=== PATIENT | female | born 1945 | race African-American/Black ===

== ENCOUNTER 2020-01-29 10:15 | Inpatient (IN) | payer OTHER ==
[~2020-01-29] VITALS: Ht 170.2 cm; Wt 119.8 kg
--- NOTE | ~2020-01-29 | HC ---
[facility] [place] [address] CONSULTATION Name: DESMOND BARROS MILLI Room #: 216-P ADM IN M.R.#: [id number] Admission: 01/29/20 Attend Phys: Gerard Knapp MD Discharge: Date of : 49 Report #: [id number] THIS REPORT FOR: cc: Leora Flores,Leora Cesar,Jeff Peacock MD ~ CC: Leora Knapp DATE OF SERVICE: 01/29/2020 REASON FOR CONSULTATION: End-stage renal disease requiring hemodialysis. HISTORY OF PRESENT ILLNESS: This is a 74-year-old female who presented this morning to the Emergency Room having been sent with mental status changes from the [facility]. At this point, she is not able to give any history. My history is obtained from the Emergency Room records as well as the records sent over from [facility]. She has been battling some wounds on her thigh and her coccyx. This is the medial right thigh and her coccyx. She has had some leukocytosis. She has not demonstrated actual fever at [facility]. She was brought in with mental status changes, leukocytosis and these wounds. From a dialysis standpoint, she has been on chronic hemodialysis with an undetermined duration. I can say it has been at least since 10/2019, although I am unaware if it has been a longer. She normally dialyzes on a Saturday, Saturday, Saturday basis. She dialyzes using a left upper arm fistula. I have no dialysis records from [facility]. She last dialyzed on 01/27/2020, which is 2 days ago. PAST MEDICAL HISTORY: Longstanding diabetes and hypertension. She has had these wounds on her thigh and her coccyx for an undetermined period of time. She has had prior deep venous thrombosis and is chronically on anticoagulation. It looks like some of her prior care has been through the [facility] here in [place]. Again, she is not able to provide me with any additional history at this time. Medication list is from the Emergency Room as I cannot find an active list brought over from [facility]. They include warfarin, but according to the notes, she has been off of warfarin for the past 9 days; metformin, which I am not sure I am believing as she is on chronic dialysis patient. It is also listed as vitamin D, Renvela 1600 mg t.i.d. with meals as a phosphate binder, pravastatin 20 mg daily, metoprolol 25 mg daily, Neurontin 400 mg t.i.d., furosemide 40 mg b.i.d., amiodarone 200 mg daily. ALLERGIES: LISTED TO CODEINE AND LISINOPRIL WELL PENICILLIN. [facility] [address] [place] [address] CONSULTATION Name: DESMOND BARROS Room #: 216-P ADM IN M.R.#: [id number] Admission: 01/29/20 Attend Phys: Gerard Knapp MD Discharge: Date of : 49 Report #: [id number] Other history available. PHYSICAL EXAMINATION: GENERAL: Debilitated, chronically ill-appearing female. VITAL SIGNS: Blood pressure 138/87, heart rate 71, temperature 96.0, oxygen saturation 93%. HEENT: Shows pupils are equal and reactive. Sclerae nonicteric. Oral mucosa is dry. NECK: Veins are nondistended. CHEST: Shallow. CARDIOVASCULAR: Heart has a regular rate and rhythm. ABDOMEN: Obese, has active bowel sounds. Numerous abdominal scars are noted. EXTREMITIES: She has a left upper arm fistula in place, which looks to be potentially a brachiocephalic fistula. Her right thigh is bandaged, but has an extensive wound on the medial aspect. She has chronic brawny appearing lower extremity edema 1-2+ in the lower extremities. I did not have assistance to roll over and looked at her coccyx ulcer. LABORATORY DATA: Sodium 135, potassium 4.8, chloride 99, bicarbonate 22, BUN 36, creatinine 4.0, glucose 141, calcium 8.9, magnesium 2.2, AST 37, ALT 5, alkaline phosphatase 118, total protein 6.8, albumin 2.1. White count 19.0, hemoglobin 9.9, hematocrit 33.1, platelets 322,000. Differential on the white count, 86 neutrophils, 7 lymphs, 6 monos. INR 7.2. ASSESSMENT: 1. End-stage renal disease. Due to the timing of the consult this evening and the patient's labs, we will plan for dialysis tomorrow. I have talked to surgery and they are planning to take her to the OR in the morning, so we will dialyze in the afternoon. Orders have been placed. I have talked to the dialysis nurse. 2. Thigh and sacral wounds. Again, I talked to surgery. They are going to do debridement on these and see the extent. I asked that they get some biopsy of the periphery because I am curious whether this is calciphylaxis. No diagnosis is noted on her chart nor any records indicate that, but it is very suspicious diagnosis in a long-term dialysis patient on warfarin. Certainly, if that is the case, we will need to use thiosulfate as a chelator to try to help those improve. In addition, she does have a leukocytosis, so cultures have been drawn and she will be started on broad-spectrum antibiotics. 3. Longstanding hypertension, currently adequate. 4. Longstanding type 2 diabetes. 5. Prior deep venous thrombosis. Again, on chronic warfarin. This significantly is associated with risk of calciphylaxis injury as noted above. PLAN: 1. Dialysis tomorrow. 2. Follow labs. [facility] [address] [place] [address] CONSULTATION Name: DESMOND BARROS Room #: 216-P ADM IN M.R.#: [id number] Admission: 01/29/20 Attend Phys: Gerard Knapp MD Discharge: Date of : 49 Report #: [id number] 3. Await the biopsy results from her debridement to see if there is evidence of calciphylaxis. 4. We will follow along the care of this very ill patient. By: [id number] Jeff Ayala MD /nt
--- NOTE | ~2020-01-29 | HC ---
[facility] [place] [address] CONSULTATION Name: DESMOND BARROS MILLI Room #: 216-P ADM IN M.R.#: [id number] Admission: 01/29/20 Attend Phys: Gerard Knapp MD Discharge: Date of : 49 Report #: [id number] THIS REPORT FOR: cc: Leora Flores,Leora Valencia,Bennie Pittman MD ~ CC: Leora Knapp DATE OF SERVICE: 02/02/2020 REASON FOR CONSULTATION: Evaluate sacral osteomyelitis and right thigh wound infection. HISTORY OF PRESENT ILLNESS: The patient is a 74-year-old alf resident with diabetes, end-stage renal disease, on hemodialysis, who has had progressive confusional state over the last several days. She has been declining in her overall health for over a year. She has ongoing sacral pressure wounds. She has venous insufficiency and known peripheral vascular disease. She has had no fever, chills or sweats. Hemodynamically, has been reasonably stable. Has been on oxygen per nasal cannula at low flow rate. There has been no cough or sputum production. Yesterday underwent surgical debridement of her sacrum down to bone. Also, right thigh down to the fascia. As of yet have not seen path reports to confirm or exclude calciphylaxis. She is bit more alert now and able to converse, although remains confused. REVIEW OF SYSTEMS: A 10-point review was negative other than what has been described above. ALLERGIES: CODEINE, LISINOPRIL, PENICILLIN, PHOSPHATE. MEDICATIONS: Amiodarone, folic acid, Lasix, gabapentin, gentamicin ophthalmic drops, metoprolol, pravastatin, Renvela, thiamine, vitamin D, Tylenol, Coumadin, metformin, Santyl. PAST MEDICAL HISTORY: Dialysis, end-stage renal disease, osteoarthritis, hypertension, chronic pain, DVT, peripheral vascular disease, diabetes, suspected dementia, constipation. FAMILY HISTORY: No tuberculosis. SOCIAL HISTORY: Nonsmoker, no significant alcohol intake. Resides in a alf. PHYSICAL EXAMINATION: VITAL SIGNS: She was afebrile and hemodynamically stable. She was on dialysis. [facility] [address] [place] [address] CONSULTATION Name: DESMOND BARROS Room #: 216-P [facility] IN .R.#: [id number] Admission: 01/29/20 Attend Phys: Gerard Knapp MD Discharge: Date of : 47 Report #: [id number] GENERAL: She was lethargic, but would arouse and follow commands. Unable to give any further details of her history. Denied any pain. SKIN: With wounds to her sacrum and her medial thigh, which were packed. Moderate amount of drainage identified. 2+ peripheral edema. No other skin lesions noted. No palpable adenopathy. ABDOMEN: Obese. EXTREMITIES: Left upper extremity AV fistula was functional. EYES: Without scleral icterus. MOUTH: Without mucositis. NECK: Supple. LUNGS: Clear. HEART: Regular, without murmur, gallop or rub. ABDOMEN: Soft, nontender with no hepatosplenomegaly or mass. GENITAL AND RECTAL: Not performed. NEUROLOGIC: Cranial nerves intact and able to move her left side greater than her right. LABORATORY STUDIES: Reviewed. Microbiology reviewed. Chest x-ray reviewed. IMPRESSION AND PLAN: A 74-year-old with underlying diabetes, end-stage renal disease, on hemodialysis program with failure to thrive over the last year or so with progressive confusion, immobility and development of sacral pressure wound along with likely osteomyelitis given the operative findings. There is polymicrobial growth thus far. 1. 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 2. End-stage renal disease. 3. Diabetes. 4. Hypertension. 5. Likely aspiration left lung infiltrate versus atelectasis, which has improved. RECOMMENDATIONS: We will continue antibiotic coverage, pending further culture results. Await further ID workup until daughter decides on appropriate plan of care for her mother. By: [id number] [id number] Bennie Foreman MD /nt
[2020-01-29 10:16] VITALS: BP 114/81
[2020-01-29 10:54] LABS: ABSOLUTE NEUTROPHILS 16.6 thou/uL (1.4-8.2); BASOPHILS 0.5 % (0.0-2.0); EOSINOPHILS 0.7 % (0.0-3.0); HEMATOCRIT 33.1 % (37.0-47.0); HEMOGLOBIN 9.9 gm/dL (12.0-15.0); LYMPHOCYTES 6.7 % (24.0-44.0); MCH 24.6 pg (26.0-34.0); MONOCYTES 6.2 % (1.0-8.0); PLATELET COUNT 322 thou/uL (150-400); POLYS 85.9 % (36.0-66.0); RBC 4.03 mil/uL (4.20-5.00); RDW 19.6 % (10.5-14.5); WBC 19.4 thou/uL (4.0-11.0)
[2020-01-29 11:12] LABS: CALCIUM 8.9 mg/dL (8.5-10.1); POTASSIUM 4.8 mmol/L (3.5-5.1)
[2020-01-29 11:22] LABS: ALBUMIN 2.1 g/dL (3.4-5.0); MAGNESIUM 2.2 mg/dL (1.8-2.4); TOTAL PROTEIN 6.8 g/dL (6.4-8.2); TROPONIN-I 0.21 ng/mL (<0.06)
[2020-01-29] MEDS ORDERED: AMIODARONE HCL400 MG PO (11:22)
[2020-01-29] MEDS ORDERED: BISACODYL10 MG RECTAL (11:24)
[2020-01-29] MEDS ORDERED: ESCITALOPRAM PO (11:25)
[2020-01-29] MEDS ORDERED: FUROSEMIDE 40 M40 MG PO (11:32)
[2020-01-29] MEDS ORDERED: FOLIC ACID1 MG PO (11:32)
[2020-01-29] MEDS ORDERED: NEURONTIN 400M400 M2 PO (11:35)
[2020-01-29] MEDS ORDERED: GENTAMICIN OPH3.5 GM OPHTHALMIC (11:36)
[2020-01-29] MEDS ORDERED: LORCET 5-325 M1 EACH PO (11:37)
[2020-01-29] MEDS ORDERED: TOPROL XL25 MG PO (11:37)
[2020-01-29] MEDS ORDERED: RENVELA800 MG PO (11:38)
[2020-01-29] MEDS ORDERED: PRAVACHOL 20 MG20 M1 PO (11:38)
[2020-01-29] MEDS ORDERED: VITAMIN B-1100 M2 PO (11:41)
[2020-01-29] MEDS ORDERED: VITAMIN D35000 UNI2 PO (11:41)
[2020-01-29] MEDS ORDERED: APAP650 PO (11:42)
[2020-01-29] MEDS ORDERED: COUMADIN 4 MG TA4 M1 PO (11:43)
[2020-01-29] MEDS ORDERED: SANTYL OINTMENT30 G1 TOP (11:44)
[2020-01-29] MEDS ORDERED: METFORMIN HCL500 M3 PO (11:44)
[2020-01-29 12:06] VITALS: BP 92/59
--- NOTE | 2020-01-29 12:16 | NUR ---
LAZARUS (SON) [phone] (OFFICE) [phone] (CELL)
[2020-01-29 13:00] VITALS: BP 119/28
[2020-01-29 13:24] VITALS: BP 138/87
[2020-01-29 16:09] LABS: APTT 64.4 Seconds (24.5-32.8); PROTIME 74.3 Seconds (9.3-11.4)
[2020-01-29 16:13] LABS: INR 7.2
--- NOTE | 2020-01-29 16:23 | EKG ---
[facility] [place] [address] ELECTROCARDIOGRAM REPORT Name: JORGE SHAVONNEDESMOND MILLI Room #: 216-P ADM IN M.R.#: [id number] Admission: 01/29/20 Attend Phys: Gerard Knapp MD Discharge: Date of : 49 Report #: [id number] THIS REPORT FOR: cc: Leora Flores,Leora Delaney,Gordy Holman MD ~ THIS REPORT FOR: //name// [facility] ED Test Date: 2020-01-29 Test Time: 10:24:00 Pat Name: DESMOND MARVIN Department: Room: [facility] Gender: F Hog Grader: TATYANA : 1945 Requested By: Bennie Crawford Order Number: [id number] MD: Gordy Zheng Measurements Intervals [place] Rate: 91 P: NV: QRS: 154 QRSD: 183 T: -78 QT: 416 QTc: 512 Interpretive Statements Atrial fibrillation Right bundle branch block Borderline ST depression, lateral leads No previous ECG available for comparison Electronically Signed On 01-29-2020 16:22:28 CDT by Gordy Zheng [email or web address] <ELECTRONICALLY SIGNED> By: Gordy Zheng MD 01/29/20 1622 1024 1024 Gordy Zheng MD /ISIDRO
--- NOTE | 2020-01-29 19:11 | NUR ---
Assumed pt care at 1600 from [facility].Per report,pt was admitted from emergency room around 1300. Admission hx,assessment and care plan completed. Most of the information wer obtained from pt record from alf. Dr Knapp and Matthew notified about pt admission to floor.Pt will be having surgery in am.Dr Ayala rounded on pt and additional order noted.Report will be given to iris rn.
[2020-01-29 19:57] VITALS: BP 126/46
[2020-01-30] VITALS (8 sets, daily range): BP systolic 110–154; BP diastolic 42–60
[2020-01-30 05:14] LABS: PROTIME 73.6 Seconds (9.3-11.4)
--- NOTE | 2020-01-30 05:19 | NUR ---
ASSUMED PT CARE AT 1900. PT IS ALERT, AND CONFUSED. PT IS VERY LETHARGIC AND DROWSY. FALL PRECAUTION IN PLACE. ASSESSMENT COMPLETED AND DOCUMENTED. WOUNDS ASSESSED AND CLEANED. SCHEDULED MEDS ADMINISTERED. PT IS NPO AFTER MIDNIGHT FOR A SCHEDULED DEBRIDMENT. PAIN MEDS ADMINISTERED. Q2H TURNS. DENIES ANY FURTHER NEEDS AT THIS TIME.
[2020-01-30 05:30] LABS: HEMATOCRIT 32.6 % (37.0-47.0); HEMOGLOBIN 9.5 gm/dL (12.0-15.0); MCH 24.3 pg (26.0-34.0); MCHC 29.2 g/dL (28.0-37.0); MCV 83.1 fL (80.0-100.0); RBC 3.93 mil/uL (4.20-5.00); RDW 19.3 % (10.5-14.5)
[2020-01-30 05:39] LABS: ALBUMIN 1.9 g/dL (3.4-5.0); CALCIUM 9.1 mg/dL (8.5-10.1); CREATININE 4.2 mg/dL (0.6-1.0); PHOSPHORUS 3.2 mg/dL (2.5-4.9); POTASSIUM 3.7 mmol/L (3.5-5.1)
[2020-01-30 05:42] LABS: INR 7.2
--- NOTE | 2020-01-30 13:42 | NUR ---
Assumed pt care at 7am.Pt in bed sleeping on and off with o2 on at 3lnc. Assessment completed.vss but lowdbp noted.Dr Knapp aware.Inr today was 7.2 2units of ffp given as ordered.Dr Sylvester notified and he said that he has alerady cancelled surgery for today and that pt should resumed diet and meds as previously ordered.Rn fed pt at breakfast and 75% of meal intake noted. Pt family brought in advance directive and was placed in chart.Pt in room at present having hemodialysis.Repositioned pt q2h in bed for comfort.Will continue to monitor.
[2020-01-31 03:06] LABS: HEPATITIS B SURFACE AG Negative (Negative)
[2020-01-31 04:45] VITALS: BP 104/45
--- NOTE | 2020-01-31 05:17 | NUR ---
PT SLEEPING OR SOMETIMES AWAKE AND LETHARGIC WITH C/O PAIN THIS AM, PRN PAIN MEDS GIVEN NEEDED, PT REPOSITIONED FEET AND UPPER EXT ELEVATED, LEFT ARM FISTULA COVERED WITH GAUZE DRESSING CDI, PT ALERT TO NAME AND SOMETIMES PLACE, REMAINS CONFUSED AND AGGITATED WITH CARE, NEEDS LOTS OF ENCOURAGEMENT TO FOLLOW PPOC, REFUSED DRESSING CHANGE AT START OF SHIFT VERY AGGITATED, WAS ABLE TO GET HER TO LET US TURN HER AND LET RADIOLOGY COMPLETE XRAY, WILL CON'T TO MONITOR PER PPOC.
[2020-01-31 07:45] VITALS: BP 104/74
[2020-01-31 08:20] LABS: ABSOLUTE NEUTROPHILS 13.2 thou/uL (1.4-8.2); BASOPHILS 0.8 % (0.0-2.0); EOSINOPHILS 0.2 % (0.0-3.0); HEMATOCRIT 31.6 % (37.0-47.0); HEMOGLOBIN 9.5 gm/dL (12.0-15.0); LYMPHOCYTES 5.3 % (24.0-44.0); MCH 24.5 pg (26.0-34.0); MCV 81.6 fL (80.0-100.0); MONOCYTES 7.3 % (1.0-8.0); PLATELET COUNT 231 thou/uL (150-400); POLYS 86.4 % (36.0-66.0); RBC 3.87 mil/uL (4.20-5.00); RDW 19.2 % (10.5-14.5); WBC 15.3 thou/uL (4.0-11.0)
[2020-01-31 08:27] LABS: CALCIUM 8.9 mg/dL (8.5-10.1); CREATININE 3.6 mg/dL (0.6-1.0); MAGNESIUM 1.9 mg/dL (1.8-2.4); POTASSIUM 3.4 mmol/L (3.5-5.1)
[2020-01-31 08:53] LABS: PROTIME 18.5 Seconds (9.3-11.4)
[2020-01-31 08:55] LABS: INR 1.8
--- NOTE | 2020-01-31 08:59 | NUR ---
PT REQUESTED TO SPEAK TO SON OMAR. NURSE CALLED SON AT HOME AND PT WAS ABLE TO SPEAK TO SON OMAR AND DAUGHTER IN LAW [employer] ON PHONE. NURSE GAVE FAMILY HER DIRECT WORK NUMBER IN CASE THEY HAVE ANY QUESTIONS TODAY OR WANT TO REACH THE PATIENT TO TALK TODAY. PT DOES NOT ICE PULLER THE PHONE IN HER ROOM WHEN IT RINGS.
[2020-01-31 11:30] VITALS: BP 110/68
--- NOTE | 2020-01-31 12:44 | NUR ---
WOUND CARE TO SACRAL WOUND AND THIGH WOUND DONE. PT GIVEN IV PAIN MEDS. PT WAS UPSET THAT WE GAVE HER A BATH AND CLEANED AND CHANGED HER WOUND DRESSINGS. EDUCATION GIVEN ON IMPORTANCE OF KEEPING PT TURNED AND OFF WOUND AND IMPORTANCE OF LETTING STAFF CLEAN WOUND AND CHANGE WOUND DRESSING. PT DID NOT APPEAR TO AGREE. PT BEING TURNED Q2 HOURS WITH USE OF WEDGES TO HELP REPOSITION PT. WILL CONTINUE TO MONITOR DRESSINGS AND KEEP PT TURNED AND OFF OF WOUNDS.
[2020-01-31 16:20] VITALS: BP 114/48
--- NOTE | 2020-01-31 17:55 | NUR ---
PT HAS HAD VERY POOR DIETARY INTAKE TODAY. PT NEEDS A LOT OF ENCOURAGEMENT TO EAT AND DRINK. EVEN WITH ENCOURAGEMENT, PT EATS VERY SMALL AMOUNT AND DRINKS SMALL AMOUNT. PT WOULD BENEFIT FROM SPEECH SWALLOW EVAL. RN NOTICED PT INCREASE IN COUGHING WHILE EATING AND DRINKING. PT IS NPO AFTER MIDNIGHT FOR POSSIBLE DEBRIDEMENT OF WOUNDS TOMORROW.
[2020-01-31 19:30] LABS: HCO3 24.2 mmol/L (22.0-26.0); PCO2 42.1 mmHg (35.0-45.0); PO2 79.5 mmHg (80.0-100.0); pH 7.377 (7.360-7.450); sO2 95.5 % (92.0-98.0)
--- NOTE | 2020-01-31 20:04 | NUR ---
AT 1904 PT'S TIPPLE GREASER ALARMED INCREASED HR OF 122. PT HAD PREVIOUSLY BEEN RUNNING HR OF 80'S. RN CHECKED ON PT AND LOC APPEARED MORE LETHARGIC THAN PREVIOUSLY. PT ABLE TO OPEN EYES SPONTANEOUSLY BUT WAS SLOW TO ANSWER ORIENTATION QUESTIONS. RAPID RESPONSE TEAM CALLED AND VITAL SIGNS AND BLOOD SUGAR OBTAINED. SEE CHARTING. DR CARCAMO STAT PAGED AND ORDER FOR STAT TROPONIN AND STAT EKG OBTAINED. HR WENT HIGH 180'S . PT NEVER LOST CONSCIOUSNESS. PT PLACED IN TRENDELEMBURG DUE TO LOW B/P. ONCE IN TRENDELEMBURG PT'S HR BEGAN TO SLOW DOWN AND RETURNED TO A RATE IN THE 80'S. PT'S BLOOD PRESSURE RAISED WELL. ORDER FOR CHEST XRAY OBTAINED. SENIOR FINANCE MANAGER AND RT RESPONDED TO RAPID RESPONSE CALL WELL SEVERAL RN'S ON UNIT. PT IS CURRENTLY CLOSELY BEING MONITORED VIA TELEMETRY AND REPORT WAS GIVEN TO NIGHT EMELY MADRIGAL. NURSE PRACTIONER WELL DR CARCAMO ARE BOTH AWARE AND STATE THEY MAY ADD MORE ORDERS VIA CPOE. PT APPEARS TO CURRENTLY BE BACK TO BASELINE. MONITORED VIA TELEMETRY SEE APPEARS TO
[2020-01-31 21:17] LABS: CALCIUM 8.7 mg/dL (8.5-10.1); MAGNESIUM 1.9 mg/dL (1.8-2.4); POTASSIUM 3.5 mmol/L (3.5-5.1)
[2020-02-01] VITALS (12 sets, daily range): BP systolic 18–123; BP diastolic 38–58
[2020-02-01 04:56] LABS: BASOPHILS 0.3 % (0.0-2.0); EOSINOPHILS 0.3 % (0.0-3.0); HEMATOCRIT 31.9 % (37.0-47.0); HEMOGLOBIN 9.3 gm/dL (12.0-15.0); LYMPHOCYTES 4.4 % (24.0-44.0); MCH 24.3 pg (26.0-34.0); MCHC 29.3 g/dL (28.0-37.0); MONOCYTES 7.4 % (1.0-8.0); PLATELET COUNT 229 thou/uL (150-400); POLYS 87.6 % (36.0-66.0); RBC 3.84 mil/uL (4.20-5.00); RDW 19.4 % (10.5-14.5); WBC 14.8 thou/uL (4.0-11.0)
--- NOTE | 2020-02-01 04:57 | NUR ---
ASSUMED PT CARE AROUND 1899, CHANGE OF SHIFT REPORT OBTAINED FROM EMELY WEBB PT IS A&O TO SELF, CONFUSED, APPEARS LETHARGIC AND DROWSY, PT STATUS CHANGED CHARTED BY THE PREVIOUS NURSE, METOPROLOL GIVEN ORDERED, PT STAYED ON HER BASELINE THUS FAR, WOUND CARE COMPLETED ORDRED, DENIES PAIN, SR/BBB ON THE MONITOR, REMAINED NPO AFTER MIDNIGHT FOR POSSIBLE DEBRIDEMENT IN THE AM, VSS, B/S STABLE, [id number], LAYING IN BED AT THIS TIME, WILL CONTINUE TO MONITOR
[2020-02-01 05:10] LABS: CALCIUM 8.6 mg/dL (8.5-10.1); CREATININE 3.8 mg/dL (0.6-1.0)
[2020-02-01 05:14] LABS: POTASSIUM 4.2 mmol/L (3.5-5.1)
[2020-02-01 05:38] LABS: INR 1.7; PROTIME 16.7 Seconds (9.3-11.4)
--- NOTE | 2020-02-01 08:03 | EKG ---
[facility] [place] [address] ELECTROCARDIOGRAM REPORT Name: DESMOND BARROS Room #: 216-P ADM IN M.R.#: [id number] Admission: 01/29/20 Attend Phys: Gerard Knapp MD Discharge: Date of : 49 Report #: [id number] THIS REPORT FOR: cc: Leora Flores,Leora Gillis,Luis Carlos Cortes MD [facility] THIS REPORT FOR: //name// [facility] Test Date: 2020-01-31 Test Time: 19:17:51 Pat Name: DESMOND MARVIN Department: Room: 216 Gender: F Winder Contort Operator: kassi : 1945 Requested By: Koki Em Order Number: [id number] MD: Luis Carlos Roque Measurements Intervals [place] Rate: 169 P: 0 [place]: 84 QRS: 250 QRSD: 156 T: 138 QT: 334 QTc: 561 Interpretive Statements Ventricular tachycardia Compared to ECG 01/29/2020 10:24:00 Atrial fibrillation no longer present Nurse notified Electronically Signed On 02-01-2020 8:02:25 CDT by Luis Carlos Roque [email or web address] <ELECTRONICALLY SIGNED> By: Luis Carlos Roque MD, [facility] 02/01/20 0802 16 16 Luis Carlos Roque MD, [facility] /EPI
--- NOTE | 2020-02-01 08:05 | EKG ---
[facility] [place] [address] ELECTROCARDIOGRAM REPORT Name: DESMOND BARROS Room #: 216-P ADM IN M.R.#: [id number] Admission: 01/29/20 Attend Phys: Gerard Knapp MD Discharge: Date of : 47 Report #: [id number] THIS REPORT FOR: cc: Leora Flores,Leora Glilis,Lius Carlos Cortes MD [facility] THIS REPORT FOR: //name// [facility] Test Date: 2020-01-31 Test Time: 19:23:19 Pat Name: DESMOND MARVIN Department: Room: 216 Gender: F Driver Sales: [facility] : 1945 Requested By: Gerard Knapp Order Number: [id number] MD: Luis Carlos Roque Measurements Intervals [place] Rate: 83 P: 49 CT: 185 QRS: 174 QRSD: 196 T: -81 QT: 409 QTc: 481 Interpretive Statements Sinus rhythm Right bundle branch block ST and T wave abnormality Baseline wander in lead(s) II,III,aVR,aVF Compared to ECG 01/29/2020 10:24:00 Sinus rhythm has replaced ventricular tachycardia Electronically Signed On 02-01-2020 8:03:46 CDT by Luis Carlos Roque [email or web address] <ELECTRONICALLY SIGNED> By: Luis Carlos Roque MD, FACC 02/01/20802 22 22 Luis Carlos Roque MD, [facility] /EPI
--- NOTE | 2020-02-01 11:51 | NUR ---
Patient admits from [facility]. She dializes at [facility]. Patient to have I/D today. Sp with admissions at [facility] and son. Plan to return once stable.
--- NOTE | 2020-02-01 12:11 | NUR ---
ASSUMED CARE AT SHIFT CHANGE, PATIENT ALERT TO SELF AND PLACE, FORGETFUL. VSS THIS MORNING AND SR WITH BBB. RECIEVED PATIENT BACK FROM PACU S/P I&D, SEE SURGERY NOTES, DROWESY AND BP LOW 89/45, ANGELI CHU DRESSAGE JUDGE, INFORMED ANESTHESIA PHYSICIAN. MEDICATED, AND REPOSTIONED NEEDED FOR COMFORT. AND WILL CONTINUE TO MONITOR PATIENT.
--- NOTE | 2020-02-01 15:51 | HC ---
[facility] [place] [address] CONSULTATION Name: DESMOND BARROS MILLI Room #: 216-P ADM IN M.R.#: [id number] Admission: 01/29/20 Attend Phys: Gerard Knapp MD Discharge: Date of : 49 Report #: [id number] THIS REPORT FOR: cc: Leora Flores,Jeff Higgins MD ~ CC: Leora Knapp DATE OF SERVICE: 01/29/2020 CHIEF COMPLAINT: Right thigh and sacral pressure ulcerations. HISTORY OF PRESENT ILLNESS: This is a 74-year-old female patient from a local nursing care facility with increasing alteration in her mental status over the past couple of days. She is noted to have foul smelling drainage from the sacral and right thigh wound and has been admitted to the hospital. I have been asked to see her in consultation for wound care. The patient is not cooperative with the exam. She is disoriented to person and time. The patient is not able to provide any useful information about herself at present. PAST MEDICAL HISTORY: Positive for history of end-stage renal disease, requiring dialysis; hypertension, chronic pain, history of DVT, peripheral vascular disease, type 2 diabetes mellitus and some cognitive dysfunction is noted in her chart. ALLERGIES: CODEINE, LISINOPRIL, PENICILLIN, AND PHOSPHATE. SOCIAL HISTORY: Negative for alcohol or tobacco use. FAMILY HISTORY: Unknown. MEDICATIONS: Include amiodarone, folic acid, Lasix, Neurontin, gentamicin, Lorcet, Toprol-XL, Pravachol, Renvela, vitamin B1, vitamin D3, Coumadin, metformin, and Santyl. REVIEW OF SYSTEMS: Unobtainable due to the patient's cognitive dysfunction and uncooperativeness. PHYSICAL EXAMINATION: VITAL SIGNS: At this time include temperature 36.9, pulse 86, respiratory rate 19, blood pressure 92/59. GENERAL: This is a chronically ill-appearing, somewhat overweight appearing female patient who appears to be in no distress. HEENT: Head is normocephalic. Nose and throat clear. NECK: Supple. [facility] [address] [place] [address] CONSULTATION Name: DESMOND BARROS Room #: 216-[facility] IN M.R.#: [id number] Admission: 01/29/20 Attend Phys: Gerard Knapp MD Discharge: Date of : 49 Report #: [id number] ABDOMEN: Obese and soft, nontender. EXTREMITIES: Right thigh demonstrates a very foul smelling ulceration involving the medial thigh. It is possibly related to a catheter or simply skin folds that have caused the deterioration in this area. There is very little if any granulation tissue, a large amount of slough and fibrin present with significant odor. Sacral ulceration demonstrates a very large necrotic foul smelling ulceration. It is unstageable. I would not be surprised if there were underlying osteomyelitis, as it is overtly infected. NEUROLOGIC: The patient appears to be alert. She is disoriented to person, place, and time. LABORATORY DATA: Include white blood cell count 19.4, the hemoglobin 9.9, hematocrit 33.1. Sodium 135, potassium 4.8, chloride 99, CO2 22, BUN 36, creatinine 4.0, glucose 141. Albumin is 2.1. CLINICAL IMPRESSION: 1. Unstageable pressure ulceration to the right medial thigh. 2. Unstageable pressure ulceration to the sacral region. 3. Wound infection and cellulitis to the sacral region. 4. Sepsis, likely due to pressure ulcers. 5. Diabetes mellitus with hyperglycemia. 6. Severe protein-calorie malnutrition. 7. Morbid obesity. 8. Dementia versus acute mental status change. RECOMMENDATION: At this point in time, we will recommend a Dakin's moist gauze dressing. These were clearly need aggressive surgical debridement. I have consulted Dr. Alan Sylvester to see her for surgical debridement. The patient will be placed on a low air loss mattress. She will need q. 2-hour turning and positioning. Recommend PRAFO boots as well for pressure prophylaxis. Recommend continuation of medications. I appreciate being asked to see her in consultation. <ELECTRONICALLY SIGNED> By: Jeff Saenz MD 02/01/20 1551 1520 1557 Jeff Saenz MD /nt
--- NOTE | 2020-02-01 16:30 | NUR ---
FAXED CLINICAL UPDATE TO [facility] RECEIVED CONFIRMATION AND LEFT MSG WITH JOELLE IN ADM. DP TO FOLLOW.
[2020-02-02 03:51] VITALS: BP 99/48
--- NOTE | 2020-02-02 04:32 | NUR ---
Assumed care 1900. AO x 1. wound debridment done yesterday. no dressing change completed during this shift. vss stable will softer BP. q2 turns. No c/o pain other than when repositioning. Will continue to follow POC.
[2020-02-02 06:21] LABS: ABSOLUTE NEUTROPHILS 16.5 thou/uL (1.4-8.2); BASOPHILS 0.3 % (0.0-2.0); HEMATOCRIT 32.7 % (37.0-47.0); HEMOGLOBIN 9.6 gm/dL (12.0-15.0); LYMPHOCYTES 3.3 % (24.0-44.0); MCH 24.3 pg (26.0-34.0); MCHC 29.3 g/dL (28.0-37.0); MCV 83.1 fL (80.0-100.0); MONOCYTES 4.7 % (1.0-8.0); PLATELET COUNT 233 thou/uL (150-400); POLYS 91.7 % (36.0-66.0); RBC 3.94 mil/uL (4.20-5.00); RDW 19.9 % (10.5-14.5)
[2020-02-02 06:44] LABS: CALCIUM 8.7 mg/dL (8.5-10.1); CREATININE 4.5 mg/dL (0.6-1.0); POTASSIUM 4.2 mmol/L (3.5-5.1); TROPONIN-I 0.15 ng/mL (<0.06)
[2020-02-02 12:15] VITALS: BP 104/34; BP 119/59
--- NOTE | 2020-02-02 15:41 | NUR ---
phys sp with son and dtr in law. Reviewed pallative care. Sp with son and dtr in law reviewed plan to return to [facility] in am. Discussed hospice services. They are interested in referral to [facility]. Sp with intake at [facility]. [place] wedding planner to fax referral. Outside DNR on chart. Sp with house painter helper regarding family to visit. Son reports it would be him, his , son Dimple who is 30, Caitlin who is 17 and possibly Jaswant. Requested house painter helper call family once determined time and acceptance.Updated [place]
[2020-02-02 16:00] VITALS: BP 128/104
[2020-02-02 16:11] VITALS: BP 128/104
--- NOTE | 2020-02-02 17:18 | NUR ---
PT CARE ASSUMED APPROXIMATELY 0700. PT ASSESSMENTS CHARTED. PT MEDICATION CHARTED. WOUND CARE PERFORMED ON RIGHT THIGH AND SACRUM. BOOTS IN PLACE. FENTANYL GIVEN FOR PAIN.
[2020-02-03 02:45] VITALS: BP 98/53
--- NOTE | 2020-02-03 07:41 | NUR ---
ASSUMED PT CARE AT APPROX 1900.PT ALERT WITH CONFUSION.MEDS ADMINISTERED ORDERED.PT'S DRSG INTACT.PT REFUSED TO BE REPOSITIONED MOST OF THE SHIFT.PT ON BEDREST.L UPPERARM DIALYSIS CATH POSITIVE FOR BRUIT AND THRILL.LOW AIR MATTRESS IN PLACE.REPORT GIVEN TO AM NURSE.
[2020-02-03 07:56] VITALS: BP 101/56
[2020-02-03 08:53] VITALS: BP 101/56
--- NOTE | 2020-02-03 09:26 | PATH ---
[facility] [address] [place] [address] PATHOLOGY RPT PROCEDURE Name: BUTCH BARROS Room #: 444-P ADM IN M.R.#: [id number] Admission: 01/29/20 Date of : 49 Discharge: Report #: [id number] Path Case #: [id number] [facility] Accession Number: [id number] . 01 Material submitted: . PART A: sacrum - SACRAL DEBRIDEMENT PART B: thigh - RIGHT MEDIAL THIGH DEBRIDEMENT. Modifiers: right, medial . 01 Clinical history: . Sacral decubitus ulcer and right thigh ulcer . 02 Diagnosis: A. Sacral debridement: - and subcutaneous tissue showing marked acute inflammation along with fibrinoid degeneration and gangrenous necrosis, consistent with debridement tissue. . B. Right medial thigh debridement: - Skin and subcutaneous tissue showing marked acute inflammation along with fibrinoid degeneration and gangrenous necrosis, consistent with debridement tissue. . (IUV:kristen; 02/02/2020) MBR 02/02/2020 1233 Local . 02 Electronically signed: . Chhaya Dahl MD, Pathologist NPI- [id number] . 01 Gross description: . A. The specimen is received in formalin, labeled "Butch Chen, sacral debridement". Received are multiple segments of yellow-piedra, lobulated to necrotic-appearing soft tissue with attached necrotic skin measuring 17.7 x 10.2 x 7.1 cm in aggregate dimensions. The specimen is submitted representatively in cassette A1. . B. The specimen is received in formalin, labeled "Butch Chen, right medial thigh debridement". Received are multiple segments of bright yellow, lobulated to necrotic-appearing soft tissue admixed with necrotic-appearing skin measuring 8.3 x 7.1 x 4.1 cm in aggregate dimensions. The specimen is submitted representatively in cassette B1. (CAA; 02/01/2020) QA/[facility] 02/01/2020 1315 Local . 02 Pathologist provided ICD-10: L89.159, L97.119 . 02 [place] [address] PATHOLOGY RPT PROCEDURE Name: BUTCH BARROS AL Room #: 444-P [facility] IN M.R.#: [id number] Admission: 01/29/20 Date of : 49 Discharge: Report #: [id number] Path Case #: [id number] [facility] . [id number], [id number] Specimen Comment: A courtesy copy of this report has been sent to [phone] Specimen Comment: Report sent to Specimen Comment: A duplicate report has been generated due to demographic updates. Performed at: [address], [place] [id number] MD Ryan Vargas MD Phone: [phone] Performed at: [address] [id number] MD Chhaya Dahl MD Phone: [phone]
--- NOTE | 2020-02-03 11:17 | NUR ---
FAXED REFERRAL TO [facility] SPOKE WITH TRINY AND SHE RECEIVED REFERRAL AND WILL BE MTG WITH FAMILY TODAY TO SIGN PAPERWORK. DP TO FOLLOW.
[2020-02-03] MEDS ORDERED: LORCET 5-325 M1 EACH PO (11:48)
[2020-02-03] MEDS ORDERED: PEPCID AC10 MG PO (11:48)
[2020-02-03] MEDS ORDERED: ESCITALOPRAM OX10 MG PO (11:48)
--- NOTE | 2020-02-03 13:25 | NUR ---
PT DISCHARGING TODAY TO [facility] WITH [facility] FAXED DC ORDERS/SUMMRY TO [place] SPOKE WITH JOELLE IN ADM SHE RECEIVED DC ORDERS AND THAT TRANSPORT ARRANGED WITH [facility] FOR 1400. DC ORDERS FAXED TO [facility] RECEIVED CONFIRMATION. FAMILY NOTIFIED AT BEDSIDE BY SW OF TIME OF TRANSPORT. UNIT NOTIFIED AND CHART COPY PER US. RN TO CALL REPORT TO [phone].
--- NOTE | 2020-02-03 14:13 | NUR ---
assumed care of pt at 0700. pt confused at times, but oriented to person, president. speech evaluated, recommends nectar thick liquids and mechanical soft diet. tolerating those fine. on 3L O2. anuric and no BM today. PIV removed prior to discharge without complications. fistual in place without complications. R thigh wound dressing changed. pt refused to turn for buttock wound and Q2 turns. report called to facility.
== END 2020-02-03 14:50 | disposition hospice, inpatient (51) | DRG 853 ==
LOC: ER 10:15 → EROBS 12:20 → 2N 12:20 → ENTRNSPT 02-02 17:47 → 4S 02-02 18:02
PROVIDERS: Emergency Medicine; Internal Medicine Nephrology; Nurse Practitioner Family; Surgery; ADMIT Internal Medicine
PROC: 30233K1 Transfusion of Nonautologous Frozen Plasma into Peripheral Vein, Percutaneous Approach (ICD-10-PCS; principal; 2020-01-30)
PROC: 0JBL0ZZ Excision of Right Upper Leg Subcutaneous Tissue and Fascia, Open Approach (ICD-10-PCS; 2020-02-01)
PROC: 0JDL0ZZ Extraction of Right Upper Leg Subcutaneous Tissue and Fascia, Open Approach (ICD-10-PCS; 2020-02-01)
PROC: 0JD70ZZ Extraction of Back Subcutaneous Tissue and Fascia, Open Approach (ICD-10-PCS; 2020-02-01)
PROC: 0JB70ZZ Excision of Back Subcutaneous Tissue and Fascia, Open Approach (ICD-10-PCS; 2020-02-01)
PROC: 0QB10ZZ Excision of Sacrum, Open Approach (ICD-10-PCS; 2020-02-01)
PROC: 5A1D70Z Performance of Urinary Filtration, Intermittent, Less than 6 Hours Per Day (ICD-10-PCS; 2020-02-02)
DX: A41.9 Sepsis, unspecified organism (principal); N18.6 End stage renal disease; L89.154 Pressure ulcer of sacral region, stage 4; G92 Toxic encephalopathy; E43 Unspecified severe protein-calorie malnutrition; J69.0 Pneumonitis due to inhalation of food and vomit; D68.9 Coagulation defect, unspecified; L03.818 Cellulitis of other sites; M46.28 Osteomyelitis of vertebra, sacral and sacrococcygeal region; I12.0 Hypertensive chronic kidney disease with stage 5 chronic kidney disease or end stage renal disease; M19.90 Unspecified osteoarthritis, unspecified site; G89.29 Other chronic pain; E11.51 Type 2 diabetes mellitus with diabetic peripheral angiopathy without gangrene; K59.00 Constipation, unspecified; D63.8 Anemia in other chronic diseases classified elsewhere; L89.210 Pressure ulcer of right hip, unstageable; L89.150 Pressure ulcer of sacral region, unstageable; E11.65 Type 2 diabetes mellitus with hyperglycemia; E66.01 Morbid (severe) obesity due to excess calories; F03.90 Unspecified dementia, unspecified severity, without behavioral disturbance, psychotic disturbance, mood disturbance, and anxiety; E11.22 Type 2 diabetes mellitus with diabetic chronic kidney disease; E11.69 Type 2 diabetes mellitus with other specified complication; F32.9 Major depressive disorder, single episode, unspecified; Z51.5 Encounter for palliative care; Z88.6 Allergy status to analgesic agent; Z88.0 Allergy status to penicillin; Z88.8 Allergy status to other drugs, medicaments and biological substances; Z86.718 Personal history of other venous thrombosis and embolism
CPT/HCPCS: 10081; 10100; 10195; 32100; 50010; 50101; 50386; 50403; 57119; 57120; 62110; 62900; 70005